=== PATIENT | female | born 2000 | race Caucasian/White ===

== ENCOUNTER 2023-10-16 13:16 | Emergency (ER) | payer SELFPAY ==
--- NOTE | 2023-10-16 14:58 | RAD REPORT ---
EXAM DESCRIPTION: US - TRANSVAG OB CERVIX ASSESSMENT - 10/16/2023 2:40 pm CLINICAL HISTORY: with abdominal pain and vaginal bleeding COMPARISON: none FINDINGS: Single live intrauterine in breech presentation. Cervix length 4.2 centimeters. Cervix is closed. Amniotic fluid normal Placenta anterior. No subchorionic/retroplacental bleed Cardiac activity 152 beats per minute Femur length 1.2 centimeters 13 weeks 5 days The right and left adnexa are unremarkable IMPRESSION: Single live intrauterine in breech presentation Estimated gestational age 13 weeks 5 days MITALI 02/14/2025 If a survey is desired it should be performed in approximately 4 weeks
--- NOTE | 2023-10-16 14:59 | RAD REPORT ---
EXAM DESCRIPTION: US - OB Limited - 10/16/2023 1:49 pm CLINICAL HISTORY: with abdominal and vaginal bleeding COMPARISON: None FINDINGS: Single live intrauterine in breech presentation. Cervix length 4.2 centimeters. Cervix is closed. Amniotic fluid normal Placenta anterior. No subchorionic/retroplacental bleed Cardiac activity 152 beats per minute Femur length 1.2 centimeters 13 weeks 5 days The right and left adnexa are unremarkable IMPRESSION: Single live intrauterine in breech presentation Estimated gestational age 13 weeks 5 days MITALI 02/14/2025 If a survey is desired it should be performed in approximately 4 weeks
[2023-10-16 15:44] LABS: Absolute Lymphocytes (CBC) 2.1 K/uL (0.7-4.9); Absolute Monocytes 0.6 K/uL (0.1-1.3); Absolute Neutrophil 7.3 K/uL (1.8-8.0); Basophils % 0.3 % (0-1.3); Eosinophils % 0.3 % (0-4.4); Hematocrit 41.4 % (36.0-45.0); Hemoglobin 14.2 g/dL (12.0-15.0); Lymphocytes % 21.1 % (15.3-44.8); MCH 30.9 pg (27.0-35.0); MCHC 34.2 g/dL (32.0-36.0); MCV 90.3 fL (80-100); MPV 7.4 fL (7.6-11.3); Monocytes % 5.9 % (3.3-12.3); Neutrophils % 72.4 % (41.7-73.7); Platelets 314 thou/uL (152-406); RBC Red Blood Cell Count 4.58 M/uL (3.86-4.86); Red Cell Distribution Width 12.7 % (12.1-15.2)
[2023-10-16 15:46] LABS: Specific Gravity 1.011 (1.005-1.030)
[2023-10-16 15:49] LABS: Specific Gravity 1.011 (1.005-1.030); Urine Bacteria <20 /HPF (<20); Urine Bilirubin NEGATIVE (Negative); Urine Blood Negative (Negative); Urine Clarity Extremely Turbid (Clear); Urine Color Light-Yellow (Yellow); Urine Culture Reflex Order REFLEXED; Urine Glucose NEGATIVE (Negative); Urine Ketones NEGATIVE (Negative); Urine Microscopic Reflex YN ORDER UMIC; Urine Mucus Slight /HPF (None Seen); Urine Nitrite NEGATIVE (Negative); Urine Protein NEGATIVE (Negative); Urine Urobilinogen Normal (Normal)
[2023-10-16 16:18] LABS: Anion Gap 10.7 mEq/L (5.0-15.0); Potassium 3.7 mEq/L (3.5-5.1)
--- NOTE | 2023-10-16 17:37 | EDPHYS ---
Physician Documentation [facility] Name: Renae Martinez Age: 23 yrs Sex: Female : 2000 Arrival Date: 10/16/2023 Time: 13:16 Bed 12 Private MD: ED Physician Reinier Young HPI: 10/15 14:02 This 23 yrs old Female presents to ER via Ambulatory with complaints of Vaginal rn Bleeding, 14 weeks , Abdominal Cramping. 14:02 The patient presents with vaginal bleeding that is light, with no clots. Onset: The rn symptoms/episode began/occurred today. Modifying factors: The symptoms are alleviated by nothing, the symptoms are aggravated by nothing. Associated signs and symptoms: Pertinent positives: cramping, vaginal bleeding, Pertinent negatives: dysuria, fever. Severity of symptoms: At their worst the symptoms were mild, in the emergency department the symptoms are unchanged. The patient has experienced a previous episode. Patient reports approximately 14 weeks , has not had an ultrasound of this . with 1 previous miscarriage this past June. No trauma. No clots. Denies leakage of fluid.. TIME CHECKER: 16:00 3, Full Term 1, 1, Living 1, unknown db Historical: - Allergies: 13:56 No Known Allergies; aa5 - PMHx: 13:56 None; aa5 - PSHx: 13:56 None; aa5 - Immunization history:: Adult Immunizations unknown. - Infectious Disease History:: Denies. - Social history:: Smoking status: Patient denies any tobacco usage or history of. - Family history:: not pertinent. - Hospitalizations: : No recent hospitalization is reported. ROS: 14:02 Constitutional: Negative for fever, chills, and weight loss, Cardiovascular: Negative rn for chest pain, palpitations, and edema, Respiratory: Negative for shortness of breath, cough, wheezing, and pleuritic chest pain, Abdomen/GI: Positive for abdominal cramping : Positive for vaginal bleeding MS/Extremity: Negative for injury and deformity, Neuro: Negative for headache, weakness, numbness, tingling, and seizure, Exam: 14:02 Constitutional: This is a well developed, well nourished patient who is awake, alert, rn and in no acute distress. Cardiovascular: Regular rate and rhythm. No pulse deficits. Abdomen/GI: Soft, nontender, no peritoneal signs or guarding MS/ Extremity: Pulses equal, no cyanosis. Neuro: Awake and alert, GCS 15 Vital Signs: 13:56 BP 120 / 76; Pulse 88; Resp 18 S; Temp 97.5(TE); Pulse Ox 100% on R/A; Weight 72.57 kg aa5 (R); Height 5 ft. 6 in. (R); 16:00 BP 100 / 70; Pulse 87; Resp 16; Pulse Ox 100% on R/A; aa5 13:56 Body Mass Index 25.82 (72.57 kg, 167.64 cm) aa5 MDM: 13:21 Patient medically screened. rn 17:35 Differential diagnosis: nonspecific abdominal pain, urinary tract infection. Data rn reviewed: vital signs, nurses notes, lab test result(s), radiologic studies, ultrasound, and as a result, I will discharge patient. Counseling: I had a detailed discussion with the patient and/or guardian regarding the historical points, exam findings, and any diagnostic results supporting the discharge/admit diagnosis, lab results, radiology results, the need for outpatient follow up, to return to the emergency department if symptoms worsen or persist or if there are any questions or concerns that arise at home. Special discussion: I discussed with the patient/guardian in detail that at this point there is no indication for admission to the hospital. It is understood, however, that if the symptoms persist or worsen the patient needs to return immediately for re-evaluation. 10/15 13:22 Order name: Abo/rh Typing 10/15 13:22 Order name: Basic Metabolic Panel; Complete Time: 17:36 10/15 13:22 Order name: CBC with Diff; Complete Time: 16:07 10/15 13:22 Order name: Test, Urine; Complete Time: 16:07 10/15 13:22 Order name: Quantitative Hcg; Complete Time: 17:36 10/15 13:22 Order name: Urinalysis w/ reflexes; Complete Time: 16:07 10/15 15:52 Order name: Urine Culture [facility] 10/15 16:44 Order name: Rh Typing [facility] 10/15 16:44 Order name: Antibody Screen [facility] 10/15 16:44 Order name: Fetalscreen [facility] 10/15 16:44 Order name: Cord Rh type [facility] 10/15 16:44 Order name: Rhogam [facility] 10/15 13:22 Order name: US OB Limited; Complete Time: 15:26 rn 10/15 14:30 Order name: TRANSVAG OB CERVIX ASSESSMENT; Complete Time: 15:26 EDMS 10/15 13:22 Order name: IV Saline Lock; Complete Time: 15:25 rn 10/15 13:22 Order name: Labs collected and sent; Complete Time: 15:25 rn 10/15 13:22 Order name: NPO; Complete Time: 15:25 rn Administered Medications: 17:23 Drug: Rho D Immune Globulin IM 300 mcg IM once Route: IM; Site: right gluteus; aa5 17:57 Follow up: Response: No adverse reaction aa5 Disposition Summary: 10/16/23 17:36 Discharge Ordered Notes: Location: Home rn Problem: new rn Symptoms: have improved rn Condition: Stable rn Diagnosis - Threatened rn Followup: rn - With: Private Physician - When: As needed - Reason: Recheck today's complaints, Re-evaluation by your physician Discharge Instructions: - Discharge Summary Sheet rn - Threatened Miscarriage rn - Vaginal Bleeding During , First Trimester rn - Vaginal Bleeding During , Second Trimester rn Forms: - Medication Reconciliation Form rn - Antibiotic 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 EDMS EDMS 13:23 13:23 BASIC METABOLIC PANEL+C.LAB.BRZ ordered. EDMS EDMS 13:23 13:23 CBC+H.LAB.BRZ ordered. EDMS EDMS 13:23 13:23 Test, Urine+UC.LAB.BRZ ordered. EDMS EDMS 13:23 13:23 QUANTITATIVE HCG+C.LAB.BRZ ordered. EDMS EDMS 13:23 13:23 Urinalysis+U.LAB.BRZ ordered. EDMS EDMS 13:23 13:23 OB Limited+US.RAD.BRZ ordered. EDMS EDMS
--- NOTE | 2023-10-16 17:37 | ER ---
Nurse's Notes [facility] Name: Renae Martinez Age: 23 yrs Sex: Female : 2000 Arrival Date: 10/16/2023 Time: 13:16 Bed 12 Private MD: Diagnosis: Threatened Presentation: 10/15 13:28 Note Pt in ultrasound at this time. cm10 13:56 Chief complaint: Patient states: lower abdominal and lower back cramping that began aa5 yesterday and today noticed some vaginal bleeding when wiping. Reports being 14 weeks . 13:56 Acuity: MICHAEL 3 aa5 13:56 Method Of Arrival: Ambulatory aa5 13:56 Coronavirus screen: At this time, the client does not indicate any symptoms associated aa5 with coronavirus-19. Ebola Screen: Patient denies travel to an Ebola-affected area in the 21 days before illness onset. Initial Sepsis Screen: Does the patient meet any 2 criteria? No. Patient's initial sepsis screen is negative. Does the patient have a suspected source of infection? No. Patient's initial sepsis screen is negative. Risk Assessment: Do you want to hurt yourself or someone else? Patient reports no desire to harm self or others. Onset of symptoms was October 16, 2023. 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 - Infectious Disease History:: Denies. - Social history:: Smoking status: Patient denies any tobacco usage or history of. - Family history:: not pertinent. - Hospitalizations: : No recent hospitalization is reported. Screenin:00 [facility] ED Fall Risk Assessment (Adult) History of falling in the last 3 months, db including since admission No falls in past 3 months (0 pts) Confusion or Disorientation No (0 pts) Intoxicated or Sedated No (0 pts) Impaired Gait No (0 pts) Mobility Assist Device Used No (0 pt) Altered Elimination No (0 pt) Score/Fall Risk Level 0 - 2 = Low Risk Oriented to surroundings, Maintained a safe environment. Abuse screen: Denies threats or abuse. Denies injuries from another. Nutritional screening: No deficits noted. Tuberculosis screening: No symptoms or risk factors identified. Assessment: 14:18 Reassessment: PATIENT IS GOING BACK TO ULTRASOUND FOR MORE PICTURES. db 14:18 Reassessment: Patient appears in no apparent distress at this time. Patient and/or db family updated on plan of care and expected duration. Pain level reassessed. Patient is alert, oriented x 3, equal unlabored respirations, skin warm/dry/pink. 16:00 Reassessment: Patient appears in no apparent distress at this time. Patient and/or db family updated on plan of care and expected duration. Pain level reassessed. Patient is alert, oriented x 3, equal unlabored respirations, skin warm/dry/pink. General: Appears in no apparent distress. comfortable, Behavior is calm, cooperative. Pain: Denies pain. Neuro: Level of Consciousness is awake, alert, obeys commands, Oriented to person, place, time. : Urine is cloudy, Reports vaginal bleeding that is spotty. 16:24 Reassessment: FAXED FOR IMMUNE GLOBULIN. db Vital Signs: 13:56 BP 120 / 76; Pulse 88; Resp 18 S; Temp 97.5(TE); Pulse Ox 100% on R/A; Weight 72.57 kg aa5 (R); Height 5 ft. 6 in. (R); 16:00 BP 100 / 70; Pulse 87; Resp 16; Pulse Ox 100% on R/A; aa5 13:56 Body Mass Index 25.82 (72.57 kg, 167.64 cm) aa5 ED Course: 13:18 Patient arrived in ED. mg5 13:21 Reinier Young MD is Attending Physician. rn 13:51 OB Limited In Process Unspecified. EDMS 13:56 Arm band placed on Patient placed in an exam room, on a stretcher. aa5 13:57 Triage completed. aa5 14:18 Shantell Lopez, RN is Primary Nurse. db 14:42 TRANSVAG OB CERVIX ASSESSMENT In Process Unspecified. EDMS 15:15 Initial lab(s) drawn, by me, sent to lab. Urine collected: clean catch specimen. db Inserted saline lock: 20 gauge in right antecubital area, using aseptic technique. Blood collected. Flushed with 10 mL NS. Administered Medications: 17:23 Drug: Rho D Immune Globulin IM 300 mcg IM once Route: IM; Site: right gluteus; aa5 17:57 Follow up: Response: No adverse reaction aa5 Medication: 16:00 VIS not applicable for this client. db Outcome: 17:36 Discharge ordered by . rn 17:58 Patient left the ED. aa5 Signatures: Dispatcher [employer] EDMS Reinier Young MD MD rn Calderon, Audri RN RN aa5 Shantell Lopez RN RN db Martinez, Clarissa, RN RN cm10 [place], [place] mg5 Corrections: (The following items were deleted from the chart) 17:24 16:00 BP 007 / 7; Pulse 87bpm; Resp 16bpm; Pulse Ox 100% RA; db aa5
[2023-10-16 18:07] VITALS: TEMP 97.5; O2SAT 100
[2023-10-16 18:08] VITALS: BP 100/70
== END 2023-10-16 17:58 | disposition home or self-care (01) ==
LOC: ER 13:16
DX: O20.0 Threatened abortion (principal); Z3A.14 14 weeks gestation of pregnancy
CPT/HCPCS: 36415; 76815; 76817; 80048; 81001; 81025; 84702; 85025; 85461; 86850; 86900; 86901; 87086; 87088; 96372; 99284; J2790